=== PATIENT | female | born 1985 | race Caucasian/White ===

== ENCOUNTER → 2016-09-01 | Outpatient (REF) | payer OTHER ==
[2016-09-01 17:36] LABS: MEAN CORPUSCULAR HEMOGLOBIN 29.7 pg (27.0-33.0); MEAN CORPUSCULAR HGB CONC 33.1 g/dl (32.0-36.5); MEAN CORPUSCULAR VOLUME 89.6 fl (80.0-96.0); RED CELL DISTRIBUTION WIDTH 12.6 % (11.5-14.5); WHITE BLOOD COUNT 7.1 K/mm3 (4.0-10.0)
[2016-09-01 18:17] LABS: FREE T4 1.05 NG/DL (0.76-1.46)
== END ==
LOC: M SFHCLERA 13:57
PROVIDERS: ATTEND Family Medicine
DX: R53.83 Other fatigue (principal); Z13.220 Encounter for screening for lipoid disorders; E55.9 Vitamin D deficiency, unspecified

== ENCOUNTER → 2016-10-18 | Outpatient (REF) | payer OTHER | LOC: M SFHCLERA 15:38 | PROVIDERS: ATTEND Family Medicine | DX: Z78.9 Other specified health status (principal); Z11.1 Encounter for screening for respiratory tuberculosis ==

== ENCOUNTER → 2018-01-24 | Outpatient (REF) | payer OTHER ==
[2018-01-24 17:28] LABS: TOTAL 25(OH) VITAMIN D 18.8 NG/ML (30.0-100.0)
[2018-01-24 17:30] LABS: ESTIMATED AVERAGE GLUCOSE 103 MG/DL (60-110); HEMOGLOBIN A1c 5.2 %
== END ==
LOC: M SFHCLERA 10:22
DX: E55.9 Vitamin D deficiency, unspecified (principal); Z86.32 Personal history of gestational diabetes
CPT/HCPCS: 83036

== ENCOUNTER 2020-05-14 16:42 | Inpatient (IN) | payer BC, OTHER, SELFPAY ==
[~2020-05-14] VITALS: Ht 170.2 cm; Wt 72.3 kg
[2020-05-14] MEDS ORDERED: LISI10TA4 (16:48)
[2020-05-14] MEDS ORDERED: NS 1,000 ML IV ONE ×2 (17:00→19:30)
[2020-05-14] MEDS ORDERED: ONDANSETRON 4MG/2ML VIAL IV ONE (17:00)
[2020-05-14 17:26] LABS: BASO # 0.1 10^3/uL (0.0-0.2); BASO % 0.4 % (0.0-1.0); EOS % 0.1 % (0.0-3.0); HEMATOCRIT 47.1 % (36.0-47.0); HEMOGLOBIN 15.7 g/dl (12.0-15.5); LYMPH # 2.1 10^3/uL (1.5-5.0); LYMPH % 11.6 % (24.0-44.0); MEAN CORPUSCULAR HEMOGLOBIN 29.6 pg (27.0-33.0); MEAN CORPUSCULAR HGB CONC 33.3 g/dl (32.0-36.5); MEAN CORPUSCULAR VOLUME 88.7 fl (80.0-96.0); MONO # 1.1 10^3/uL (0.0-0.8); MONO % 6.2 % (0.0-5.0); NEUTROPHILS # 14.6 10^3/uL (1.5-8.5); NEUTROPHILS % 81.3 % (36.0-66.0); PLATELET COUNT, AUTOMATED 334 10^3/uL (150-450); RED BLOOD COUNT 5.31 10^6/uL (4.00-5.40); WHITE BLOOD COUNT 17.9 10^3/uL (4.0-10.0)
[2020-05-14 17:53] LABS: ALBUMIN 3.5 GM/DL (3.2-5.2); BILIRUBIN,DIRECT 0.2 MG/DL (0.0-0.2); BILIRUBIN,TOTAL 0.9 MG/DL (0.2-1.0); TOTAL PROTEIN 7.3 GM/DL (6.4-8.2)
[2020-05-14] MEDS ORDERED: ISOVUE-370 76% 100ML VIAL As Ordered ONE (18:14)
[2020-05-14] MEDS ORDERED: METOCLOPRAMIDE INJ 10MG/2ML VIAL (J2765 PER 1) IV ONE (18:30)
[2020-05-14] MEDS ORDERED: KETOROLAC 30 MG/ML 1ML VIAL IV ONE (18:30)
[2020-05-14] MEDS ORDERED: KETOROLAC 30 MG/ML 1ML VIAL As Ordered ONE (18:31)
--- NOTE | 2020-05-14 19:02 | REPVR ---
PROCEDURE INFORMATION: Exam: CT Abdomen And Pelvis With Contrast Exam date and time: 05/14/2020 6:17 PM Age: 35 years old Clinical indication: Abdominal pain; Epigastric; Additional info: Epigastric pain TECHNIQUE: Imaging protocol: Computed tomography of the abdomen and pelvis with intravenous contrast. Radiation optimization: All CT scans at this facility use at least one of these dose optimization techniques: automated exposure control; mA and/or kV adjustment per patient size (includes targeted exams where dose is matched to clinical indication); or iterative reconstruction. Contrast material: ISOVUE 370; Contrast volume: 100 ml; Contrast route: INTRAVENOUS (IV); COMPARISON: GALLBLADDER US 04/11/2014 6:51 AM FINDINGS: Lungs: No suspicious mass or airspace process in the visualized lung bases. Liver: Liver appears normal with no concerning focal abnormality. Inferior right lobe cyst measuring 6 mm. Gallbladder and bile ducts: Gallbladder is present and shows no evidence of gallstone. Pancreas: Pancreas appears normal. No focal mass or peripancreatic inflammation. Spleen: Spleen appears homogeneous without focal mass. Adrenal glands: Adrenal glands are normal in appearance. Kidneys and ureters: Kidneys appear normal, with no stone, solid mass or hydronephrosis. Stomach and bowel: No evidence of small bowel obstruction. Long segment circumferential mural edema of small bowel. No obstructive change. This extends to involve the distal ileum Appendix: Normal caliber appendix is identified, with no adjacent inflammation. Intraperitoneal space: No pneumoperitoneum. Moderate abdominal and pelvic free fluid is present without localized collection. Vasculature: No aortic aneurysm. Main portal and splenic veins enhance normally. Lymph nodes: No enlarged lymph nodes. Urinary bladder: Urinary bladder appears normal. Reproductive: Female reproductive organs appear unremarkable. Bones/joints: Bony structures show no acute fracture or destructive process. Soft tissues: No concerning focal abnormality of the extra-abdominal and pelvic soft tissues. IMPRESSION: Long segment inflammatory or infectious enteritis in small bowel extending to the terminal ileum with moderate abdominal and pelvic free fluid. This is concerning for Crohn's disease or other inflammatory/infectious enteritis. No obstructive change Electronically signed by: Isidro Lal On 05/14/2020 19:02:30 PM
[2020-05-14] MEDS ORDERED: CIPR-249 PO (19:26)
[2020-05-14] MEDS ORDERED: REGL10TA6 PO (19:26)
[2020-05-14] MEDS ORDERED: FLAG500T PO (19:26)
[2020-05-14] MEDS ORDERED: ONDA-83 PO (19:30)
[2020-05-14] MEDS ORDERED: metroNIDAZOLE 500 MG in IV 1 EA IV ONE (19:30)
[2020-05-14] MEDS ORDERED: CIPROFLOXACIN 400 MG in IV 1 EA IV ONE (19:30)
[2020-05-14] MEDS ORDERED: lisinopriL 10 MG TAB PO SCH (21:00)
[2020-05-14] MEDS ORDERED: NS 1,000 ML IV SCH ×2 (21:15→23:45)
[2020-05-14] MEDS ORDERED: MAALOX 30 ML SUSP *UDC PO PRN (21:15)
[2020-05-14] MEDS ORDERED: MOM 30ML SUSPENSION UDC PO PRN (21:15)
[2020-05-14] MEDS ORDERED: ACETAMINOPHEN TAB 650MG DOSE (2X325MG) PO PRN (21:15)
[2020-05-14] MEDS ORDERED: LISI10TA4 PO (21:39)
[2020-05-14] MEDS ORDERED: MAGN400T2 PO (21:39)
[2020-05-14] MEDS ORDERED: VITMTA PO (21:39)
[2020-05-14] MEDS ORDERED: FERR325T3 PO (21:39)
[2020-05-14] MEDS ORDERED: TRI-TAB PO (21:39)
--- NOTE | 2020-05-14 21:43 | HPEPDOC ---
[facility] Medical History & Physical Date of Admission May 14, 2020 Date of Service: May 14, 2020 Primary Care Physician: LIZETTE WERNER Attending Physician: MACHO GÓMEZ MD History and Physical TIME OF SERVICE 1100PM CHIEF COMPLAINT: vomiting HISTORY OF PRESENT ILLNESS: This 35 yr old F presented with c/o of nausea and vomiting that begun yesterday evening at about 10PM and re-occurred every 20 min. She has been under stress, and usually has nausea without vomiting when she is stressed out. Initially she thought the symptoms would resolve but she continued to vomit to the point that she couldn't even keep down ice and she begun to feel dizzy. She has also had upper abdominal in a band-like distribution that is cramping in nature and 8/10 in severity. She denied having diarrhea, f/c/ or pain with urination but has noticed that her urine is dark in color. She denied eating-out or eating food that she hadn't prepared recently. She denied having a personal or family history of Crohn's disease. CT scan of the abdomen revealed enteritis; Dr. Falcon discussed the case with who recommended abx and will see the patient if officially consulted. ROS: neg except as listed in HPI PAST MEDICAL / SURGICAL HISTORY: Recently diagnosed HTN started lisinopril on Monday SOCIAL HISTORY: She doesn't smoke, drink habitually or use recreational drugs. She is originally from [place] FAMILY HISTORY: Liver Cancer, Liver cirrhosis, [place], Thyroid disorders ALLERGIES: Please see below. HOME MEDICATIONS: Please see below. PHYSICAL EXAMINATION: VITAL SIGNS: Vital Signs Date Time Temp Pulse Resp B/P (MAP) Pulse Ox O2 Delivery O2 Flow Rate FiO2 05/14/20 16:43 96.5 133 20 208/95 (132) 99 Room Air GENERAL APPEARANCE: slim build / well developed/ NAD INTEGUMENT: slightly flushed / not diaphoretic HEENT: EOMI CARDIOVASCULAR: RRR/NMRG/ radial pulses intact /no lower extremity edema LUNGS: CTAB on RA / no cough ABDOMEN: no guerrero junior's sign / soft/ not tender with palpation MUSCULOSKELETAL: NCAT/ CHIARA X 4 extremities NEUROLOGICAL: CN 2-12 intact /speech not dysarthric PSYCHIATRIC: A&O x3 / able to understand and follow all commands LABORATORY DATA: See below. 05/14/20 17:15 05/14/20 17:15: Immature Granulocyte % (Auto) 0.4, Neutrophils (%) (Auto) 81.3H, Lymphocytes (%) (Auto) 11.6L, Monocytes (%) (Auto) 6.2H, Eosinophils (%) (Auto) 0.1, Basophils (%) (Auto) 0.4, Neutrophils # (Auto) 14.6H, Lymphocytes # (Auto) 2.1, Monocytes # (Auto) 1.1H, Eosinophils # (Auto) 0.0, Basophils # (Auto) 0.1, Nucleated Red Blood Cells % (auto) 0.0, Lactic Acid Level 1.5 05/14/20 17:16: Total Bilirubin 0.9, Direct Bilirubin 0.2, Aspartate Amino Transf (AST/SGOT) 12, Alanine Aminotransferase (ALT/SGPT) 21, Alkaline Phosphatase 52, Total Protein 7.3, Albumin 3.5, Albumin/Globulin Ratio 0.9L, Lipase 124 05/14/20 17:19: POC Glucose (Misc Panel) 134H, POC Sodium (Misc Panel) 139, POC Potassium (Misc Panel) 4.0, POC Chloride (Misc Panel) 106, POC Total CO2 (Misc Panel) 20.0L, POC Blood Urea Nitrogen (Misc Panel 22, POC Ionized Calcium (Misc Panel) 4.6, POC Creatinine (Misc Panel) 0.8, POC Hematocrit (Misc Panel) 49.0 05/14/20 18:01: POC Beta HCG, Quantitative < 5.0 IMAGING: CT abd/pelvis "IMPRESSION: Long segment inflammatory or infectious enteritis in small bowel extending to the terminal ileum with moderate abdominal and pelvic free fluid. This is concerning for Crohn's disease or other inflammatory/infectious enteritis. No obstructive change" MICROBIOLOGY: blood cx pending... ASSESSMENT: is a 35 yr old w a hx of HTN who presented w c/o of n/v and upper abdominal pain and was found to have enteritis on CT; she will be admitted for management of sepsis likely 2/2 enteritis. PLAN: 1. SIRS vs Sepsis May be reactive due to autoimmune condition vs infections due to enteritis SIRS criteria include HR of 133 in the ER and WBC # of 19.7 Lactic acid is wnl Plan: admit to medical floor/ telemetry / abx, IVF / f/u blood cx / target MAP of 65 to 70 / target UOP of 0.5ml/kg/H 2. Small bowel and terminal ileum enteritis Not sure if this is the cause of her n/v and upper abdominal pain. She doesn't have diarrhea Plan: day time team may consider Gen Surg consult if indicated in the morning / cefepime and metronidazole 2.Nausea / vomiting & upper abdominal pain Not sure if this is related to the enteritis Plan: zofran, toradol 3. Chronic HTN Plan: lisinopril 4.Erythrocytosis Likely 2/2 hemoconcentration 2/2 dehydration Plan: f/u CBC DVT px w SCDs & TEDs Dispo: home after less than 2 midnight's stay Home Medications Scheduled Ferrous Sulfate (Ferrous Sulfate) 325 Mg Tablet.dr, 325 MG PO DAILY Lisinopril (Lisinopril) 10 Mg Tablet, 10 MG PO QHS Magnesium Oxide (Magnesium Oxide) 400 Mg Tablet, 400 MG PO DAILY Multivitamins (Thera M Plus Tablet) 1 Each Tablet, 1 TAB PO DAILY Norgestimate-Ethinyl Estradiol (Tri-Sprintec Tablet) 1 Each Tablet, 1 TAB PO QHS Allergies Coded Allergies: No Known Allergies (Unverified , 05/14/20) A-FIB/CHADSVASC A-FIB History Current/History of A-Fib/PAF?: No Current PO Anticoag Therapy: No MACHO GÓMEZ MD May 14, 2020 21:43
[2020-05-14] MEDS ORDERED: ONDANSETRON 4MG/2ML VIAL IV PRN (23:30)
[2020-05-15] VITALS: BP 166/91
[2020-05-15 00:19] VITALS: BP 166/70
[2020-05-15] MEDS ORDERED: KETOROLAC TROMETHAMINE 10 MG TAB PO PRN (01:00)
[2020-05-15 04:00] VITALS: BP 118/58
[2020-05-15 05:56] LABS: HEMATOCRIT 34.3 % (36.0-47.0); MEAN CORPUSCULAR HEMOGLOBIN 30.1 pg (27.0-33.0); MEAN CORPUSCULAR HGB CONC 33.2 g/dl (32.0-36.5); MEAN CORPUSCULAR VOLUME 90.5 fl (80.0-96.0); RED BLOOD COUNT 3.79 10^6/uL (4.00-5.40); WHITE BLOOD COUNT 9.3 10^3/uL (4.0-10.0)
[2020-05-15 06:02] LABS: HEMOGLOBIN 11.4 g/dl (12.0-15.5); PLATELET COUNT, AUTOMATED 218 10^3/uL (150-450)
[2020-05-15 06:11] LABS: BLOOD UREA NITROGEN 18 MG/DL (7-18); CALCIUM LEVEL 7.4 MG/DL (8.5-10.1); CARBON DIOXIDE LEVEL 24 MEQ/L (21-32); CHLORIDE LEVEL 113 MEQ/L (98-107); CREATININE FOR GFR 0.74 MG/DL (0.55-1.30); GLOMERULAR FILTRATION RATE > 60.0 (>60); GLUCOSE, FASTING 100 MG/DL (70-100); MAGNESIUM LEVEL 1.8 MG/DL (1.8-2.4); POTASSIUM SERUM 3.5 MEQ/L (3.5-5.1); SODIUM LEVEL 143 MEQ/L (136-145)
[2020-05-15 08:00] VITALS: BP 122/62
[2020-05-15] MEDS ORDERED: CEFEPIME HCL 2 GM in D5W MINI-BAG PLUS 50 ML IV SCH (08:00)
[2020-05-15] MEDS ORDERED: metroNIDAZOLE 500 MG in IV 1 EA IV SCH (09:00)
[2020-05-15] MEDS ORDERED: FERROUS SULFATE 325MG TAB PO SCH (09:00)
[2020-05-15] MEDS ORDERED: MAGNESIUM OXIDE 400 MG TAB (MAG-OX) PO SCH (09:00)
[2020-05-15] MEDS ORDERED: SLF 3 ML SYR IV PRN (10:15)
[2020-05-15] MEDS ORDERED: ONDA4TAB6 PO (10:21)
[2020-05-15] MEDS ORDERED: OMEP-218 PO (10:22)
[2020-05-15] MEDS ORDERED: CIPR-249 PO (10:27)
[2020-05-15] MEDS ORDERED: METR-265 PO (10:27)
--- NOTE | 2020-05-15 12:30 | DS.PDOC ---
Discharge Summary General Date of Admission May 14, 2020 at 21:02 Date of Discharge 05/15/20 Discharge Summary PROCEDURES PERFORMED DURING STAY: [None]. ADMITTING DIAGNOSES: SIRS Small bowel and terminal ileum enteritis Nausea / vomiting & upper abdominal pain Chronic HTN Erythrocytosis DISCHARGE DIAGNOSES: SIRS Small bowel and terminal ileum enteritis Nausea / vomiting & upper abdominal pain Chronic HTN Erythrocytosis COMPLICATIONS/CHIEF COMPLAINT: Enteritis,Sepsis. HISTORY OF PRESENT ILLNESS: This 35 yr old F presented with c/o of nausea and vomiting that begun yesterday evening at about 10PM and re-occurred every 20 min. She has been under stress, and usually has nausea without vomiting when she is stressed out. Initially she thought the symptoms would resolve but she continued to vomit to the point that she couldn't even keep down ice and she begun to feel dizzy. She has also had upper abdominal in a band-like distribution that is cramping in nature and 8/10 in severity. She denied having diarrhea, f/c/ or pain with urination but has noticed that her urine is dark in color. She denied eating-out or eating food that she hadn't prepared recently. She denied having a personal or family history of Crohn's disease. CT scan of the abdomen revealed enteritis HOSPITAL COURSE: During hospital stay the following issues addressed 1. SIRS Most likely secondary to enteritis versus gastritis: Bacterial versus viral. No diarrhea, no fever Lactic acid is wnl Await H. pylori results Patient received antibiotic therapy. Leukocytosis resolved Patient received Zofran with positive effect 2. Small bowel and terminal ileum enteritis Not sure if this is the cause of her n/v and upper abdominal pain. She doesn't have diarrhea 2.Nausea / vomiting & upper abdominal pain Not sure if this is related to the enteritis 3. Chronic HTN Plan: lisinopril DISCHARGE MEDICATIONS: Please see below. ALLERGIES: Please see below. PHYSICAL EXAMINATION ON DISCHARGE: VITAL SIGNS: Please see below. GENERAL APPEARANCE: slim build / well developed/ NAD INTEGUMENT: slightly flushed / not diaphoretic HEENT: EOMI CARDIOVASCULAR: RRR/NMRG/ radial pulses intact /no lower extremity edema LUNGS: CTAB on RA / no cough ABDOMEN: no guerrero junior's sign / soft/ not tender with palpation MUSCULOSKELETAL: NCAT/ CHIARA X 4 extremities NEUROLOGICAL: CN 2-12 intact /speech not dysarthric PSYCHIATRIC: A&O x3 / able to understand and follow all commands LABORATORY DATA: Please see below. IMAGING: [facility] NAME: FANTASMA MAI DATE OF : 1985 BUSINESS NUMBER: [id number] AGE: 35 SEX: F REPORT #: [id number] ROOM: [facility] TECHNOLOGIST: [place] [id number] DOCTOR: MIGUEL MIN MD Ordered for Date&Time: 05/14/201657 cc: [~ rep ct ivnm] Service Date&Time: 05/14/201816 This report is in Signed status. Interpretation performed by [facility]. Thank you for having your radiology procedures performed at [facility] RADIOLOGY REPORT Date&Time printed: [~ rep prt dt last] [~ rep prt tm last] Page 2 of 2 [place] [id number] RADIOLOGY REPORT This report is in Signed status. Interpretation performed by [facility]. Thank you for having your radiology procedures performed at [facility] RADIOLOGY REPORT Date&Time printed: [~ rep prt dt last] [~ rep prt tm last] Page 1 of 1 PROCEDURE INFORMATION: Exam: CT Abdomen And Pelvis With Contrast Exam date and time: 05/14/2020 6:17 PM Age: 35 years old Clinical indication: Abdominal pain; Epigastric; Additional info: Epigastric pain TECHNIQUE: Imaging protocol: Computed tomography of the abdomen and pelvis with intravenous contrast. Radiation optimization: All CT scans at this facility use at least one of these dose optimization techniques: automated exposure control; mA and/or kV adjustment per patient size (includes targeted exams where dose is matched to clinical indication); or iterative reconstruction. Contrast material: ISOVUE 370; Contrast volume: 100 ml; Contrast route: INTRAVENOUS (IV); COMPARISON: GALLBLADDER US 04/11/2014 6:51 AM FINDINGS: Lungs: No suspicious mass or airspace process in the visualized lung bases. Liver: Liver appears normal with no concerning focal abnormality. Inferior right lobe cyst measuring 6 mm. Gallbladder and bile ducts: Gallbladder is present and shows no evidence of gallstone. Pancreas: Pancreas appears normal. No focal mass or peripancreatic inflammation. Spleen: Spleen appears homogeneous without focal mass. Adrenal glands: Adrenal glands are normal in appearance. Kidneys and ureters: Kidneys appear normal, with no stone, solid mass or hydronephrosis. Stomach and bowel: No evidence of small bowel obstruction. Long segment circumferential mural edema of small bowel. No obstructive change. This extends to involve the distal ileum Appendix: Normal caliber appendix is identified, with no adjacent inflammation. Intraperitoneal space: No pneumoperitoneum. Moderate abdominal and pelvic free fluid is present without localized collection. Vasculature: No aortic aneurysm. Main portal and splenic veins enhance normally. Lymph nodes: No enlarged lymph nodes. Urinary bladder: Urinary bladder appears normal. Reproductive: Female reproductive organs appear unremarkable. Bones/joints: Bony structures show no acute fracture or destructive process. Soft tissues: No concerning focal abnormality of the extra-abdominal and pelvic soft tissues. IMPRESSION: Long segment inflammatory or infectious enteritis in small bowel extending to the terminal ileum with moderate abdominal and pelvic free fluid. This is concerning for Crohn's disease or other inflammatory/infectious enteritis. No obstructive change Electronically signed by: Isidro Lal On 05/14/2020 19:02:30 PM DD: ISIDRO LAL MD 05/14/201816 DT: MANISHA 05/14/201901 DS: AXEL 05/14/201901 [~ rep ct labl] PROGNOSIS: Fair ACTIVITY: [As tolerated]. DIET: Soft mechanical diet for next 2 days DISPOSITION: 01 Home, Self-Care. ITEMS TO FOLLOWUP ON ON OUTPATIENT: Follow-up with PCP in 3-5 days DISCHARGE CONDITION: [Stable]. TIME SPENT ON DISCHARGE: Greater than 20 minutes. Vital Signs/I&Os Vital Signs Date Time Temp Pulse Resp B/P (MAP) Pulse Ox O2 Delivery O2 Flow Rate FiO2 05/15/20 08:00 98.3 80 18 122/62 (82) 97 Room Air I&O- Last 24 Hours up to 6 AM 05/15/20 06:00 Intake Total 2600 ml Output Total 300 ml Balance 2300 ml Laboratory Data Labs 24H Laboratory Tests 2 05/14/20 17:15: Immature Granulocyte % (Auto) 0.4, Neutrophils (%) (Auto) 81.3H, Lymphocytes (%) (Auto) 11.6L, Monocytes (%) (Auto) 6.2H, Eosinophils (%) (Auto) 0.1, Basophils (%) (Auto) 0.4, Neutrophils # (Auto) 14.6H, Lymphocytes # (Auto) 2.1, Monocytes # (Auto) 1.1H, Eosinophils # (Auto) 0.0, Basophils # (Auto) 0.1, Nucleated Red Blood Cells % (auto) 0.0, Lactic Acid Level 1.5 05/14/20 17:16: Total Bilirubin 0.9, Direct Bilirubin 0.2, Aspartate Amino Transf (AST/SGOT) 12, Alanine Aminotransferase (ALT/SGPT) 21, Alkaline Phosphatase 52, Total Protein 7.3, Albumin 3.5, Albumin/Globulin Ratio 0.9L, Lipase 124 05/14/20 17:19: POC Glucose (Misc Panel) 134H, POC Sodium (Misc Panel) 139, POC Potassium (Misc Panel) 4.0, POC Chloride (Misc Panel) 106, POC Total CO2 (Misc Panel) 20.0L, POC Blood Urea Nitrogen (Misc Panel 22, POC Ionized Calcium (Misc Panel) 4.6, POC Creatinine (Misc Panel) 0.8, POC Hematocrit (Misc Panel) 49.0 05/14/20 18:01: POC Beta HCG, Quantitative < 5.0 05/14/20 21:27: Coronavirus (COVID-19)(PCR) NEGATIVE 05/15/20 05:31: Nucleated Red Blood Cells % (auto) 0.0, Anion Gap 6L, Glomerular Filtration Rate > 60.0, Calcium Level 7.4L, Magnesium Level 1.8 CBC/BMP Laboratory Tests 05/14/20 17:15 05/15/20 05:31 Microbiology Microbiology 05/14/20 Blood Culture, Received Pending Discharge Medications Scheduled Ciprofloxacin HCl (Cipro) 500 Mg Tablet, 500 MG PO BID Ferrous Sulfate (Ferrous Sulfate) 325 Mg Tablet.dr, 325 MG PO DAILY, (Reported) Lisinopril (Lisinopril) 10 Mg Tablet, 10 MG PO QHS, (Reported) Magnesium Oxide (Magnesium Oxide) 400 Mg Tablet, 400 MG PO DAILY, (Reported) Metronidazole (Metronidazole) 500 Mg Tablet, 500 MG PO BID Multivitamins (Thera M Plus Tablet) 1 Each Tablet, 1 TAB PO DAILY, (Reported) Norgestimate-Ethinyl Estradiol (Tri-Sprintec Tablet) 1 Each Tablet, 1 TAB PO QHS, (Reported) Omeprazole (Omeprazole) 20 Mg Capsule.dr, 1 CAP PO DAILY Scheduled PRN Ondansetron (Ondansetron Odt) 4 Mg Tab.rapdis, 1 TAB PO Q6-8HP PRN for nausea/vomiting Allergies Coded Allergies: No Known Allergies (Unverified , 05/14/20) CARLEY PAUL DO May 15, 2020 12:30
[2020-05-15] MEDS ORDERED: SLF 3 ML SYR IV SCH (14:00)
== END 2020-05-15 11:55 | disposition home or self-care (01) | DRG 248 ==
LOC: M ED 16:42 → M ED INP 21:02 → M PCU 23:43
PROVIDERS: ADMIT Internal Medicine; ATTEND Internal Medicine
DX: A04.9 Bacterial intestinal infection, unspecified (principal); R65.10 Systemic inflammatory response syndrome (SIRS) of non-infectious origin without acute organ dysfunction; D75.1 Secondary polycythemia; I10 Essential (primary) hypertension; Z79.899 Other long term (current) drug therapy

== ENCOUNTER 2020-06-02 23:12 | Inpatient (IN) | payer SELFPAY ==
[~2020-06-02] VITALS: Ht 170.2 cm; Wt 70.0 kg
[~2020-06-02 23:12] MED LIST: CIPR-249 PO; FERR325T3 PO; FLAG500T PO; LISI10TA4; LISI10TA4 PO; MAGN400T2 PO; METR-265 PO; OMEP-218 PO; ONDA-83 PO; ONDA4TAB6 PO; REGL10TA6 PO; TRI-TAB PO; VITMTA PO
[2020-06-02] MEDS ORDERED: methylPREDNISolone 40MG 1ML VIAL IV ONE (23:45)
[2020-06-02] MEDS ORDERED: METOCLOPRAMIDE INJ 10MG/2ML VIAL (J2765 PER 1) IV ONE (23:45)
[2020-06-02] MEDS ORDERED: NS 1,000 ML IV ONE (23:45)
[2020-06-02] MEDS ORDERED: diphenhydrAMINE 50MG/ML VIAL (J1200) IV ONE (23:45)
[2020-06-02] MEDS ORDERED: KETOROLAC 30 MG/ML 1ML VIAL IV ONE (23:45)
[2020-06-03] MEDS ORDERED: PROMETHAZINE INJ 25 MG/ML VIAL (J2550) IV ONE (00:15)
[2020-06-03 00:18] LABS: HCG, SERUM QUALITATIVE NEGATIVE (NEGATIVE)
[2020-06-03 00:21] LABS: BASO # 0.1 10^3/uL (0.0-0.2); BASO % 0.4 % (0.0-1.0); EOS # 0.1 10^3/uL (0.0-0.5); EOS % 0.7 % (0.0-3.0); HEMOGLOBIN 14.5 g/dl (12.0-15.5); LYMPH # 2.1 10^3/uL (1.5-5.0); LYMPH % 11.3 % (24.0-44.0); MEAN CORPUSCULAR HEMOGLOBIN 29.5 pg (27.0-33.0); MEAN CORPUSCULAR VOLUME 89.6 fl (80.0-96.0); MONO # 0.7 10^3/uL (0.0-0.8); MONO % 3.9 % (0.0-5.0); NEUTROPHILS # 15.5 10^3/uL (1.5-8.5); NEUTROPHILS % 82.5 % (36.0-66.0); PLATELET COUNT, AUTOMATED 273 10^3/uL (150-450); RED BLOOD COUNT 4.91 10^6/uL (4.00-5.40); WHITE BLOOD COUNT 18.7 10^3/uL (4.0-10.0)
[2020-06-03 00:28] LABS: ALBUMIN 3.5 GM/DL (3.2-5.2); ALT/SGPT 16 U/L (12-78); AMYLASE 32 U/L (25-115); BILIRUBIN,DIRECT 0.1 MG/DL (0.0-0.2); BILIRUBIN,TOTAL 0.3 MG/DL (0.2-1.0); BLOOD UREA NITROGEN 17 MG/DL (7-18); CALCIUM LEVEL 9.8 MG/DL (8.5-10.1); CARBON DIOXIDE LEVEL 27 MEQ/L (21-32); CHLORIDE LEVEL 107 MEQ/L (98-107); CREATININE FOR GFR 0.84 MG/DL (0.55-1.30); GLOMERULAR FILTRATION RATE > 60.0 (>60); GLUCOSE, FASTING 140 MG/DL (70-100); LIPASE 67 U/L (73-393); POTASSIUM SERUM 4.5 MEQ/L (3.5-5.1); SODIUM LEVEL 139 MEQ/L (136-145); TOTAL PROTEIN 7.3 GM/DL (6.4-8.2)
[2020-06-03] MEDS ORDERED: ISOVUE-370 76% 100ML VIAL As Ordered ONE (00:38)
--- NOTE | 2020-06-03 01:07 | REPVR ---
PROCEDURE INFORMATION: Exam: CT Abdomen And Pelvis With Contrast Exam date and time: 06/02/2020 11:37 PM Age: 35 years old Clinical indication: Abdominal pain; Generalized; Additional info: Abd pain recent enteritis TECHNIQUE: Imaging protocol: Computed tomography of the abdomen and pelvis with intravenous contrast. Radiation optimization: All CT scans at this facility use at least one of these dose optimization techniques: automated exposure control; mA and/or kV adjustment per patient size (includes targeted exams where dose is matched to clinical indication); or iterative reconstruction. Contrast material: ISO; Contrast volume: 100 ml; Contrast route: INTRAVENOUS (IV); COMPARISON: CT ABD/PEL W/IV CONTRAST ONLY 05/14/2020 6:13 PM FINDINGS: Lungs: Visualized lungs are clear. Liver: Mild diffuse fatty infiltration of liver. 6 mm low-attenuation area in the right lobe of the liver similar to previous study likely small cyst. Gallbladder and bile ducts: Normal. No calcified stones. No ductal dilation. Pancreas: Normal. No ductal dilation. Spleen: Normal. No splenomegaly. Adrenal glands: Normal. No mass. Kidneys and ureters: Normal. No hydronephrosis. Stomach and bowel: Diffuse marked thickening of the small bowel loops with mucosal enhancement and fluid within the bowel loops. Mild to moderate thickening of the colon filled with fluid. Differential diagnosis would include infection versus inflammation/, hypoproteinemia /3rd spacing. No obstruction. Few scattered colonic diverticula without any CT evidence of diverticulitis. Appendix: Normal appendix. Intraperitoneal space: Mild to moderate ascites in the abdomen and pelvis. Vasculature: Unremarkable. No abdominal aortic aneurysm. Lymph nodes: Subcentimeter few mesenteric and retroperitoneal lymph nodes, these are not pathologically enlarged by CT criteria. Urinary bladder: Urinary bladder is not well distended. Reproductive: Prominent uterus with prominence of the endometrial canal likely related to menstrual cycle. Bilateral adnexa are unremarkable. Bones/joints: Unremarkable. No acute fracture. Soft tissues: Unremarkable. IMPRESSION: Diffuse marked thickening of the small bowel loops with mucosal enhancement and fluid within the bowel loops. Mild to moderate thickening of the colon filled with fluid. Differential diagnosis would include infection versus inflammation/, hypoproteinemia /3rd spacing. No obstruction. Few scattered colonic diverticula without any CT evidence of diverticulitis. Mild to moderate ascites. Electronically signed by: Cassie Aden On 06/03/2020 01:07:26 AM
[2020-06-03] MEDS ORDERED: LevoFLOXacin IV 750 MG in IV 1 EA IV ONE (01:30)
--- NOTE | 2020-06-03 01:52 | HPEPDOC ---
[facility] Medical History & Physical Date of Admission Jun 03, 2020 Date of Service: Jun 03, 2020 Primary Care Physician: LIZETTE WERNER Attending Physician: MACHO GÓMEZ MD History and Physical TIME OF SERVICE: 2:15 AM CHIEF COMPLAINT: Vomiting HISTORY OF PRESENT ILLNESS: This 35-year-old female was last admitted on May 14 with complaints of nausea and vomiting. At the time, CT scan identified the presence of long segment inflammatory or infectious enteritis affecting the small bowel extending to the terminal ileum that was concerning for Crohn's disease. She was admitted for evaluation of SIRs and small bowel and terminal ileum enteritis, started on antibiotics and Zofran and discharged home with antibiotics the next day. Over the next few days her symptoms improved. She followed up with her nurse practitioner who felt that the incident was isolated therefore, she wasn't referred to GI. Two days ago the nausea returned; yesterday at about 4 PM the cramping abdominal pain returned and at around 9:30 PM she began to vomit. In between 9:30 and 11 PM she had more than 20 episodes of nonbloody emesis. She also had about 4 or 5 episodes of nonbloody diarrhea. Beyond the n/v abdominal pain and diarrhea she has also been feeling very tired and has noticed that her eyes are dry. She denied having joint pain or oral ulcers. REVIEW OF SYSTEMS: 12 point review of systems negative except as listed in HPI PAST MEDICAL/ SURGICAL HISTORY: Hypertension SOCIAL HISTORY: She doesn't smoke, drink habitually, or use recreational drugs FAMILY HISTORY: Liver cancer, liver cirrhosis, Bennett, thyroid disorders ALLERGIES: Please see below. HOME MEDICATIONS: Please see below. PHYSICAL EXAMINATION: Vital Signs Date Time Temp Pulse Resp B/P (MAP) Pulse Ox O2 Delivery O2 Flow Rate FiO2 06/02/20 23:26 96.6 98 22 125/79 100 Room Air GEN: well-nourished / well developed/ NAD INTEGUMENT: not flushed/ not jaundice / no rashes / no skin lesions HEENT: lips acyanotic /mucus membranes moist and pink / sclera anicteric CVS: RRR/NMRG/ radial pulses intact / no lower extremity edema LUNGS: able to speak full sentences without stopping to take a breath / no coughing / lungs are clear to auscultation bilaterally on room air ABDOMEN: Contour (flat) / soft & not tender with palpation MSK/EXTREMITIES: NCAT / range of motion intact in all 4 extremities NEURO: CN 2-12 are grossly intact / speech is not dysarthric PSYCH: alert and oriented to person place and time/ able to understand and follow all commands LABORATORY DATA: 06/02/20 23:54 06/02/20 23:54: Immature Granulocyte % (Auto) 1.2, Neutrophils (%) (Auto) 82.5H, Lymphocytes (%) (Auto) 11.3L, Monocytes (%) (Auto) 3.9, Eosinophils (%) (Auto) 0.7, Basophils (%) (Auto) 0.4, Neutrophils # (Auto) 15.5H, Lymphocytes # (Auto) 2.1, Monocytes # (Auto) 0.7, Eosinophils # (Auto) 0.1, Basophils # (Auto) 0.1, Nucleated Red Blood Cells % (auto) 0.0, Activated Partial Thromboplast Time 21.7L, Anion Gap 5L, Glomerular Filtration Rate > 60.0, Lactic Acid Level 2.4*H, Calcium Level 9.8, Total Bilirubin 0.3, Direct Bilirubin 0.1, Aspartate Amino Transf (AST/SGOT) 12, Alanine Aminotransferase (ALT/SGPT) 16, Alkaline Phosphatase 45, Total Protein 7.3, Albumin 3.5, Albumin/Globulin Ratio 0.9L, Amylase Level 32, Lipase 67L, Human Chorionic Gonadotropin, Qual NEGATIVE IMAGING: CT Abd/pelvis 05/14/20 "IMPRESSION: Long segment inflammatory or infectious enteritis in small bowel extending to the terminal ileum with moderate abdominal and pelvic free fluid. This is concerning for Crohn's disease or other inflammatory/infectious enteritis. No obstructive change" CT Abd/pelvis 06/02/20 "IMPRESSION: Diffuse marked thickening of the small bowel loops with mucosal enhancement and fluid within the bowel loops. Mild to moderate thickening of the colon filled with fluid. Differential diagnosis would include infection versus inflammation/, hypoproteinemia /3rd spacing. No obstruction. Few scattered colonic diverticula without any CT evidence of diverticulitis. Mild to moderate ascites. MICROBIOLOGY: Blood cx pending.... ASSESSMENT: is a 35 yr old w a hx of HTN who presented w c/o n/v, abdominal pain and diarrhea; she will be admitted for evaluation of enteritis who's cause is TBD. PLAN: 1. Enteritis Her symptoms are n/v abdominal pain and diarrhea. Suspect that this may be due to Crohn's disease or IBS or infection. The only SIRs criteria she has is leukocytosis Plan: admit to medical floor / will hold off steroids or abx until we have confirmed the diagnosis / f/u ERS, CRP, fecal calprotectin and stool occult to help differentiate IBD ie Crohns from IBS ( IBS will have normal inflammatory markers) / f/u C. diff, stool ova & parasites to r/o infection / f/u TSH to r/o hyperthyroidism / acetaminophen for abdominal pain / f/u EKG to check QTc while on ondansetron for nausea / will ask the day time team consider Gen Surg consult to discuss endoscopy 2. Lactic acidosis Possibly 2/2 dehydration from vomiting Plan: IVF / f/u repeat lactic acid 3. Chronic HTN Plan: Lisinopril DVT PROPHYLAXIS: SCDs DISPOSITION: home after more than 2 midnight's stay Home Medications Scheduled Ciprofloxacin HCl (Ciprofloxacin HCl) 500 Mg Tablet, 500 MG PO BID Ferrous Sulfate (Ferrous Sulfate) 325 Mg Tablet.dr, 325 MG PO DAILY Lisinopril (Lisinopril) 10 Mg Tablet, 10 MG PO QHS Magnesium Oxide (Magnesium Oxide) 400 Mg Tablet, 400 MG PO DAILY Multivitamins (Thera M Plus Tablet) 1 Each Tablet, 1 TAB PO DAILY Norgestimate-Ethinyl Estradiol (Tri-Sprintec Tablet) 1 Each Tablet, 1 TAB PO QHS Omeprazole (Omeprazole) 20 Mg Capsule.dr, 20 MG PO QHS Scheduled PRN Metoclopramide HCl (Metoclopramide HCl) 10 Mg Tablet, 10 MG PO Q6H PRN for NAUSEA Ondansetron (Ondansetron Odt) 4 Mg Tab.rapdis, 4 MG PO Q6H PRN for NAUSEA OR VOMITING Ondansetron HCl (Zofran) 4 Mg Tablet, 4 MG PO Q6-8HP PRN for nausea/vomiting Allergies Coded Allergies: No Known Allergies (Unverified , 06/02/20) A-FIB/CHADSVASC A-FIB History Current/History of A-Fib/PAF?: No Current PO Anticoag Therapy: No MACHO GÓMEZ MD Jun 03, 2020 01:52
[2020-06-03] MEDS ORDERED: METAL LOCK LOOP XX ONE (01:58)
[2020-06-03] MEDS ORDERED: ONDANSETRON 4MG/2ML VIAL IV PRN (02:00)
[2020-06-03] MEDS ORDERED: MOM 30ML SUSPENSION UDC PO PRN (02:00)
[2020-06-03] MEDS ORDERED: ACETAMINOPHEN TAB 650MG DOSE (2X325MG) PO PRN (02:00)
[2020-06-03] MEDS ORDERED: MAALOX 30 ML SUSP *UDC PO PRN (02:00)
[2020-06-03 02:01] LABS: APPEARANCE, URINE CLEAR (CLEAR); BACTERIA, URINE AUTO NEGATIVE (NEGATIVE); BILIRUBIN, URINE AUTO NEGATIVE (NEGATIVE); BLOOD, URINE BLOOD NEGATIVE (NEGATIVE); COLOR, URINE YELLOW (YELLOW); GLUCOSE, URINE (UA) AUTO NEGATIVE (NEGATIVE); KETONE, URINE AUTO 1+ mg/dL (NEGATIVE); LEUKOCYTE ESTERASE, URINE AUTO NEGATIVE (NEGATIVE); MUCUS, URINE SMALL (NEGATIVE); NITRITE, URINE AUTO NEGATIVE (NEGATIVE); PROTEIN, URINE AUTO NEGATIVE (NEGATIVE); RBC, URINE AUTO 2 /HPF (0-3); SQUAMOUS EPITHELIAL CELL UR AU 6 /HPF (0-6); UROBILINOGEN, URINE AUTO 0.2 mg/dL (0.0-2.0); WBC, URINE AUTO 3 /HPF (0-3)
[2020-06-03 02:08] LABS: SPECIFIC GRAVITY URINE AUTO >1.060 (1.002-1.035)
[2020-06-03] MEDS ORDERED: ONDA4TAB6 PO (02:18)
[2020-06-03] MEDS ORDERED: OMEP1CAP73 PO (02:18)
[2020-06-03] MEDS ORDERED: METO10TA2 PO (02:18)
[2020-06-03 02:26] LABS: C REACTIVE PROTEIN QUANTITATIV 1.03 MG/DL (0.00-0.30)
[2020-06-03] MEDS: NS 1,000 ML IV SCH ×2 (02:52→10:05)
[2020-06-03 03:18] LABS: RSV AMPLIFICATION NEGATIVE (NEGATIVE)
[2020-06-03 04:08] LABS: ERYTHROCYTE SEDIMENTATION RATE 4 mm/hr (0-20)
[2020-06-03 04:15] VITALS: BP 151/63
[2020-06-03 06:00] VITALS: BP 124/62
--- NOTE | 2020-06-03 08:28 | ECGEPIP ---
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 No prior tracing Electronically Signed on 06-03-2020 8:27:58 EST by Serge Dao
[2020-06-03 08:46] LABS: HEMATOCRIT 35.4 % (36.0-47.0); MEAN CORPUSCULAR HEMOGLOBIN 29.5 pg (27.0-33.0); MEAN CORPUSCULAR HGB CONC 32.8 g/dl (32.0-36.5); MEAN CORPUSCULAR VOLUME 90.1 fl (80.0-96.0); PLATELET COUNT, AUTOMATED 189 10^3/uL (150-450); RED BLOOD COUNT 3.93 10^6/uL (4.00-5.40); WHITE BLOOD COUNT 6.8 10^3/uL (4.0-10.0)
[2020-06-03 08:59] LABS: HEMOGLOBIN 11.6 g/dl (12.0-15.5)
[2020-06-03] MEDS ORDERED: CIPROFLOXACIN 400 MG in IV 1 EA IV SCH (09:00)
[2020-06-03 09:13] LABS: BLOOD UREA NITROGEN 12 MG/DL (7-18); CALCIUM LEVEL 7.8 MG/DL (8.5-10.1); CARBON DIOXIDE LEVEL 22 MEQ/L (21-32); CHLORIDE LEVEL 110 MEQ/L (98-107); CREATININE FOR GFR 0.87 MG/DL (0.55-1.30); GLOMERULAR FILTRATION RATE > 60.0 (>60); GLUCOSE, FASTING 191 MG/DL (70-100); POTASSIUM SERUM 4.3 MEQ/L (3.5-5.1); SODIUM LEVEL 143 MEQ/L (136-145)
[2020-06-03] MEDS ORDERED: NS 1,000 ML IV ONE (10:15)
[2020-06-03 14:00] VITALS: BP 122/75
[2020-06-03] MEDS ORDERED: CIPR500T3 PO (15:46)
[2020-06-03] MEDS ORDERED: ZOFR4TAB16 PO (15:47)
--- NOTE | 2020-06-03 16:12 | DS.PDOC ---
Discharge Summary General Date of Admission Jun 03, 2020 at 01:44 Date of Discharge 06/03/2020 Discharge Summary PROCEDURES PERFORMED DURING STAY: [None]. ADMITTING DIAGNOSES: 1. Enteritis DISCHARGE DIAGNOSES: 1. Enteritis COMPLICATIONS/CHIEF COMPLAINT: Abdominal Pain, Vomiting. HISTORY OF PRESENT ILLNESS: From H&P: This 35-year-old female was last admitted on May 14 with complaints of nausea and vomiting. At the time. CT scan identified the presence of long segment inflammatory or infectious enteritis affecting the small bowel extending to the terminal ileum that was concerning for Crohn's disease. She was admitted for evaluation of SIRs and small bowel and terminal ileum enteritis, started on antibiotics and Zofran and discharged home with antibiotics the next day. Over the next few days her symptoms improved. She followed up with her nurse practitioner who felt that the incident was isolated therefore, she wasn't referred to GI. Two days ago the nausea returned; yesterday at about 4 PM the cramping abdominal pain returned and at around 9:30 PM she began to vomit. In between 9:30 and 11 PM she had more than 20 episodes of nonbloody emesis. She also had about 4 or 5 episodes of nonbloody diarrhea. Beyond the n/v abdominal pain and diarrhea she has also been feeling very tired and has noticed that her eyes are dry. She denied having joint pain or oral ulcers. HOSPITAL COURSE: Patient was admitted and received IV fluid hydration for her enteritis. She received IV Zofran as needed. In the afternoon patient was feeling very well her nausea and vomiting had resolved and she was able to tolerate food. She tells me that her diarrhea also resolved and she hadn't had any bouts of diarrhea since she was admitted. She tells me she is feeling very well and eager to go home today. I discussed with her that given that she had 2 bouts of enteritis in a short period of time I recommended that she follow-up with gastroenterology as an outpatient for possible workup of inflammatory bowel disease. At this time patient's episode resolved very quickly. Patient didn't have any more diarrhea and so stool samples were collected for analysis. Given resolutions of all symptoms this is probably unnecessary right now. I did recommended the patient follow-up with her primary care doctor within 5 days of discharge. Patient's leukocytosis that was seen initially on admission resolved with morning labs showing a WBC count of 6.8. The initial number of 18.7 could have been reactive or an error. Repeat lactate was 1.1 after IV fluid hydration. Her lactic acidosis initially was likely due to dehydration due to diarrhea and vomiting. Patient was feeling very well and asymptomatic at time of discharge physical exam was unremarkable with no abdominal pain. Patient was discharged on 06/03/2020. Patient will complete a 5 day course of ciprofloxacin 500 mg by mouth 3 times a day for empiric treatment of infectious diarrhea as well as Zofran by mouth as needed. DISCHARGE MEDICATIONS: Please see below. ALLERGIES: Please see below. PHYSICAL EXAMINATION ON DISCHARGE: Constitutional: Awake and alert, in no apparent distress ENT: Sclera are clear. Mucosa is moist. Respiratory: Lungs CTA bilaterally. No respiratory distress. No use of accessory muscles. Cardiovascular: RRR S1 and S2 are normal, no murmur Gastrointestinal: Abdomen is soft, non distended, non tender with no rebound, BS present. Musculoskeletal: No edema. No joint deformities. RUE 5/5, LUE 5/5, BLE 5/5 Neurologic: No focal neurological deficit. Mental Status: A&O x3, normal affect Skin: Warm, dry LABORATORY DATA: Please see below. IMAGING: Exam: CT Abdomen And Pelvis With Contrast Exam date and time: 06/02/2020 11:37 PM IMPRESSION: Diffuse marked thickening of the small bowel loops with mucosal enhancement and fluid within the bowel loops. Mild to moderate thickening of the colon filled with fluid. Differential diagnosis would include infection versus inflammation/, hypoproteinemia /3rd spacing. No obstruction. Few scattered colonic diverticula without any CT evidence of diverticulitis. Mild to moderate ascites. PROGNOSIS: good ACTIVITY: [As tolerated]. DIET: regular diet as tolerated DISPOSITION: Home DISCHARGE INSTRUCTIONS: Discharge instructions ITEMS TO FOLLOWUP ON ON OUTPATIENT: Follow up with your primary care doctor within 5 days discharge Follow-up with gastroenterology within the next month for workup of inflammatory bowel disease. DISCHARGE CONDITION: [Stable]. TIME SPENT ON DISCHARGE: Greater than 40 minutes. Vital Signs/I&Os Vital Signs Date Time Temp Pulse Resp B/P (MAP) Pulse Ox O2 Delivery O2 Flow Rate FiO2 06/03/20 06:00 98.1 68 19 124/62 (82) 97 Room Air I&O- Last 24 Hours up to 6 AM 06/03/20 06:00 Intake Total 1250 ml Output Total 100 ml Balance 1150 ml Laboratory Data Labs 24H Laboratory Tests 2 06/02/20 23:54: Immature Granulocyte % (Auto) 1.2, Neutrophils (%) (Auto) 82.5H, Lymphocytes (%) (Auto) 11.3L, Monocytes (%) (Auto) 3.9, Eosinophils (%) (Auto) 0.7, Basophils (%) (Auto) 0.4, Neutrophils # (Auto) 15.5H, Lymphocytes # (Auto) 2.1, Monocytes # (Auto) 0.7, Eosinophils # (Auto) 0.1, Basophils # (Auto) 0.1, Nucleated Red Blood Cells % (auto) 0.0, Erythrocyte Sedimentation Rate 4, Activated Partial Thromboplast Time 21.7L, Anion Gap 5L, Glomerular Filtration Rate > 60.0, Lactic Acid Level 2.4*H, Calcium Level 9.8, Total Bilirubin 0.3, Direct Bilirubin 0.1, Aspartate Amino Transf (AST/SGOT) 12, Alanine Aminotransferase (ALT/SGPT) 16, Alkaline Phosphatase 45, C-Reactive Protein, Quantitative 1.03H, Total Protein 7.3, Albumin 3.5, Albumin/Globulin Ratio 0.9L, Amylase Level 32, Lipase 67L, Thyroid Stimulating Hormone (TSH) 2.100, Human Chorionic Gonadotropin, Qual NEGATIVE 06/03/20 01:25: Urine Color YELLOW, Urine Appearance CLEAR, Urine pH 5.0, Urine Specific Reading >1.060H, Urine Protein NEGATIVE, Urine Glucose (Auto)(UA) NEGATIVE, Urine Keto aramis (Auto) 1+H, Urine Blood NEGATIVE, Urine Nitrite NEGATIVE, Urine Bilirubin NEGATIVE, Urine Urobilinogen 0.2, Urine Leukocyte Esterase (Auto) NEGATIVE, Urine WBC (Auto) 3, Urine RBC (Auto) 2, Urine Hyaline Casts (Auto) 0, Urine Bacteria (Auto) NEGATIVE, Urine Squamous Epithelial Cells 6, Urine Mucus (Auto) SMALL, Urine Sperm (Auto) 06/03/20 02:35: Coronavirus (COVID-19)(PCR) NEGATIVE, Influenza Type A (RT-PCR) NEGATIVE, Influenza Type B (RT-PCR) NEGATIVE, Respiratory Syncytial Virus (PCR) NEGATIVE 06/03/20 08:24: Nucleated Red Blood Cells % (auto) 0.0, Anion Gap 11, Glomerular Filtration Rate > 60.0, Calcium Level 7.8#L, Lactic Acid Followup at 4 Hours 3.1*H 06/03/20 13:13: Lactic Acid Level 1.1 CBC/BMP Laboratory Tests 06/02/20 23:54 06/03/20 08:24 Microbiology Microbiology 06/03/20 Blood Culture, Received Pending Discharge Medications Scheduled Ciprofloxacin HCl (Ciprofloxacin HCl) 500 Mg Tablet, 500 MG PO BID Ferrous Sulfate (Ferrous Sulfate) 325 Mg Tablet.dr, 325 MG PO DAILY, (Reported) Lisinopril (Lisinopril) 10 Mg Tablet, 10 MG PO QHS, (Reported) Magnesium Oxide (Magnesium Oxide) 400 Mg Tablet, 400 MG PO DAILY, (Reported) Multivitamins (Thera M Plus Tablet) 1 Each Tablet, 1 TAB PO DAILY, (Reported) Norgestimate-Ethinyl Estradiol (Tri-Sprintec Tablet) 1 Each Tablet, 1 TAB PO QHS, (Reported) Omeprazole (Omeprazole) 20 Mg Capsule.dr, 20 MG PO QHS, (Reported) Scheduled PRN Metoclopramide HCl (Metoclopramide HCl) 10 Mg Tablet, 10 MG PO Q6H PRN for NAUSEA, (Reported) Ondansetron (Ondansetron Odt) 4 Mg Tab.rapdis, 4 MG PO Q6H PRN for NAUSEA OR VOMITING, (Reported) Ondansetron HCl (Zofran) 4 Mg Tablet, 4 MG PO Q6-8HP PRN for nausea/vomiting Allergies Coded Allergies: No Known Allergies (Unverified , 06/02/20) GREG CHERRY MD Jun 03, 2020 16:12
[2020-06-03] MEDS ORDERED: lisinopriL 10 MG TAB PO SCH (21:00)
== END 2020-06-03 18:03 | disposition home or self-care (01) | DRG 249 ==
LOC: M ED 23:12 → M ED INP 06-03 01:44 → ENRESERV 06-03 03:49 → M MSPAV 06-03 04:09
PROVIDERS: ADMIT Internal Medicine; ATTEND Family Medicine
DX: K52.9 Noninfective gastroenteritis and colitis, unspecified (principal); E87.2 Acidosis; I10 Essential (primary) hypertension; E86.0 Dehydration; Z79.899 Other long term (current) drug therapy; Z20.828 Contact with and (suspected) exposure to other viral communicable diseases

== ENCOUNTER → 2021-01-05 | Outpatient (CLI) | payer OTHER ==
[~2021-01-05] MED LIST changes: +CIPR500T3 PO; +LISI10TA22; +LISI10TA22 PO; -LISI10TA4; -LISI10TA4 PO; +METO10TA2 PO; +OMEP1CAP73 PO; +ZOFR4TAB16 PO
[2021-01-05 17:46] LABS: BASO # 0.1 10^3/uL (0.0-0.2); BASO % 1.5 % (0.0-1.0); EOS # 0.4 10^3/uL (0.0-0.5); EOS % 6.1 % (0.0-3.0); HEMATOCRIT 39.3 % (36.0-47.0); HEMOGLOBIN 12.6 g/dl (12.0-15.5); LYMPH # 2.3 10^3/uL (1.5-5.0); LYMPH % 33.7 % (24.0-44.0); MEAN CORPUSCULAR HEMOGLOBIN 29.9 pg (27.0-33.0); MEAN CORPUSCULAR HGB CONC 32.1 g/dl (32.0-36.5); MEAN CORPUSCULAR VOLUME 93.1 fl (80.0-96.0); MONO # 0.6 10^3/uL (0.0-0.8); MONO % 9.2 % (2.0-8.0); NEUTROPHILS # 3.3 10^3/uL (1.5-8.5); NEUTROPHILS % 49.2 % (36.0-66.0); PLATELET COUNT, AUTOMATED 231 10^3/uL (150-450); RED BLOOD COUNT 4.22 10^6/uL (4.00-5.40); WHITE BLOOD COUNT 6.7 10^3/uL (4.0-10.0)
[2021-01-05 18:17] LABS: ALBUMIN 3.5 GM/DL (3.2-5.2); ALT/SGPT 25 U/L (12-78); BILIRUBIN,TOTAL 0.5 MG/DL (0.2-1.0); BLOOD UREA NITROGEN 14 MG/DL (7-18); CARBON DIOXIDE LEVEL 28 MEQ/L (21-32); CHLORIDE LEVEL 109 MEQ/L (98-107); CREATININE FOR GFR 0.83 MG/DL (0.55-1.30); FERRITIN 12 NG/ML (8-252); GLOMERULAR FILTRATION RATE > 60.0 (>60); GLUCOSE, FASTING 80 MG/DL (70-100); MAGNESIUM LEVEL 2.3 MG/DL (1.8-2.4); POTASSIUM SERUM 4.2 MEQ/L (3.5-5.1); SODIUM LEVEL 142 MEQ/L (136-145); TOTAL PROTEIN 7.2 GM/DL (6.4-8.2)
== END ==
LOC: M WUC 13:25
PROVIDERS: ATTEND Nurse Practitioner Family
DX: R25.2 Cramp and spasm (principal); I10 Essential (primary) hypertension

== ENCOUNTER → 2021-01-11 | Outpatient (CLI) | payer OTHER ==
--- NOTE | 2021-01-11 10:03 | REP ---
INDICATION: PAIN. COMPARISON: None. TECHNIQUE: Limited three-view series. A trauma series consists of four views. This examination cannot rule out a fracture. FINDINGS: No acute fracture or destructive osseous lesion. The mortise is intact. IMPRESSION: Limited three-view exam showing no acute fracture, however, a trauma series consists of four views. A fracture cannot be ruled out. <Electronically signed by Ankit Thompson > 01/11/21 [id number]
== END ==
LOC: M WUC 09:42
PROVIDERS: ATTEND Physician Assistant
DX: M25.571 Pain in right ankle and joints of right foot (principal)

== ENCOUNTER 2022-05-11 17:41 | Emergency (ER) | payer OTHER ==
[~2022-05-11] VITALS: Ht 170.2 cm; Wt 79.2 kg
[~2022-05-11 17:41] MED LIST changes: +OMEP-173 PO; -OMEP-218 PO
[2022-05-11] MEDS ORDERED: DULO40CA (18:35)
[2022-05-11] MEDS ORDERED: LEVA45AE (18:35)
[2022-05-11] MEDS ORDERED: CHLO50TA (18:35)
[2022-05-11] MEDS ORDERED: CYCL-707 PO (21:43)
[2022-05-11 22:02] VITALS: BP 150/84
== END 2022-05-11 22:05 | disposition home or self-care (01) ==
LOC: M ED 17:41
DX: S39.012A Strain of muscle, fascia and tendon of lower back, initial encounter (principal); X50.0XXA Overexertion from strenuous movement or load, initial encounter; Y93.29 Activity, other involving ice and snow; I10 Essential (primary) hypertension; E11.9 Type 2 diabetes mellitus without complications; J45.909 Unspecified asthma, uncomplicated; F32.A Depression, unspecified; F41.9 Anxiety disorder, unspecified; K52.9 Noninfective gastroenteritis and colitis, unspecified; Z79.899 Other long term (current) drug therapy